=== PATIENT | male | born 1980 | race Caucasian/White ===

== ENCOUNTER 2019-05-10 11:40 | Emergency (ER) | payer MEDICAID ==
[~2019-05-10] VITALS: Ht 182.9 cm; Wt 84.0 kg
[2019-05-10 12:55] LABS: CULTURE INDICATED? YES; MICROSCOPIC AUTO
[2019-05-10 12:58] LABS: BASOPHILS # (AUTO) 0.03 x10^3/uL (0-0.1); BASOPHILS % (AUTO) 0 % (0-1); EOSINOPHILS % (AUTO) 1 % (1-7); LYMPHOCYTES # (AUTO) 1.92 x10^3/uL (1-3.4); LYMPHOCYTES % (AUTO) 23 % (22-44); MD NO; MEAN CORPUSCULAR HEMOGLOBIN 30.8 pg (27.5-34.5); MEAN CORPUSCULAR HGB CONC 33.5 g/dL (33.2-36.2); MEAN CORPUSCULAR VOLUME 91.8 fL (81-97); MONOCYTES # (AUTO) 0.66 x10^3/uL (0.2-0.8); MONOCYTES % (AUTO) 8 % (2-9); NEUTROPHILS # (AUTO) 5.77 x10^3/uL (1.8-6.8); NEUTROPHILS % (AUTO) 68 % (42-75); PLATELET COUNT 223 x10^3/uL (130-400); RED BLOOD COUNT 5.32 x10^6/uL (4.38-5.82); RED CELL DISTRIBUTION WIDTH 14.8 % (9.4-14.8)
[2019-05-10 13:10] LABS: ALANINE AMINOTRANSFERASE 22 U/L (12-78); ALBUMIN 3.6 g/dL (3.4-5.0); ANION GAP 4 mmol/L (5-15); CALCIUM 8.9 mg/dL (8.5-10.1); CHLORIDE 108 mmol/L (98-107)
[2019-05-10 13:12] LABS: ALKALINE PHOSPHATASE 60 U/L (45-117); BILIRUBIN,TOTAL 0.4 mg/dL (0.2-1.0); CREATININE 0.84 mg/dL (0.7-1.3); TOTAL PROTEIN 7.3 g/dL (6.4-8.2)
[2019-05-10 13:50] VITALS: BP 121/71
--- NOTE | 2019-05-10 13:54 | NUR ---
Patient/Caregiver given discharge instructions and they have confirmed that they understand the instructions. Patient ambulatory with steady gait.
== END 2019-05-10 13:55 ==
LOC: ED 12:46
DX: R10.84 Generalized abdominal pain (principal)
CPT/HCPCS: 36415; 80053; 81001; 83690; 85025; 87086; 99283

== ENCOUNTER 2020-05-11 15:00 | Inpatient (IN) | payer MEDICARE, MEDICAID ==
[~2020-05-11] VITALS: Ht 182.9 cm; Wt 72.8 kg
[2020-05-11] MEDS ORDERED: BISACODYL 10 MG SUPP PR PRN (15:30)
[2020-05-11] MEDS ORDERED: DOCUSATE 100 MG CAPSULE PO PRN (15:30)
[2020-05-11] MEDS ORDERED: ONDANSETRON ODT 4 MG PO PRN (15:30)
[2020-05-11] MEDS ORDERED: POLYETHYLENE GLYCOL 17 GM PACKET PO PRN (15:30)
[2020-05-11] MEDS: DIVALPROEX 250 MG TABLET.DR PO SCH ×2 (16:15→20:33)
[2020-05-11 17:00] VITALS: BP 110/55
[2020-05-11 19:30] VITALS: BP 100/66
[2020-05-11] MEDS: RISPERIDONE 1 MG TABLET PO SCH (20:33)
[2020-05-11 20:34] VITALS: BP 110/71
[2020-05-11] MEDS: PLEASE ENTER HEIGHT AND WEIGHT MC SCH (20:40)
[2020-05-12] MEDS: PLEASE ENTER HEIGHT AND WEIGHT MC SCH (01:01)
[2020-05-12 07:16] LABS: MICROSCOPIC NOT IND
[2020-05-12 07:19] LABS: AMPHETAMINE SCREEN, URINE Negative (Negative); BARBITURATE SCREEN, URINE Negative (Negative); BENZODIAZEPINE SCREEN, URINE Negative (Negative); CANNABINOID SCREEN, URINE Negative (Negative); COCAINE SCREEN, URINE Negative (Negative); METHADONE SCREEN, URINE Negative (Negative); OPIATE SCREEN, URINE Negative (Negative)
[2020-05-12 07:58] VITALS: BP 88/44
[2020-05-12 08:27] LABS: CHOL/HDL RATIO 5.7; FREE T4 (FREE THYROXINE) 1.13 ng/dL (0.76-1.46); LDL/HDL RATIO 3.6 (0.5-3.0)
[2020-05-12] MEDS: FLUOXETINE HCL 20 MG CAPSULE PO SCH (08:51)
[2020-05-12] MEDS: DIVALPROEX 250 MG TABLET.DR PO SCH ×3 (08:51→21:14)
[2020-05-12 19:37] VITALS: BP 101/64
[2020-05-12] MEDS: RISPERIDONE 1 MG TABLET PO SCH (21:13)
[2020-05-12] MEDS: ACETAMINOPHEN 325 MG TABLET PO PRN (21:13)
[2020-05-13 07:26] VITALS: BP 105/69
[2020-05-13] MEDS: ACETAMINOPHEN 325 MG TABLET PO PRN (08:27)
[2020-05-13] MEDS: FLUOXETINE HCL 20 MG CAPSULE PO SCH (08:27)
[2020-05-13] MEDS: DIVALPROEX 250 MG TABLET.DR PO SCH ×3 (08:27→20:07)
[2020-05-13] MEDS: HYDROXYZINE PAMOATE 50MG CAP PO PRN (08:28)
[2020-05-13 18:28] VITALS: BP 99/61
[2020-05-13] MEDS: RISPERIDONE 1 MG TABLET PO SCH (20:07)
[2020-05-14 07:50] VITALS: BP 94/58
[2020-05-14] MEDS: FLUOXETINE HCL 20 MG CAPSULE PO SCH (09:02)
[2020-05-14] MEDS: DIVALPROEX 250 MG TABLET.DR PO SCH ×3 (09:03→20:05)
[2020-05-14] MEDS: ACETAMINOPHEN 325 MG TABLET PO PRN (09:25)
[2020-05-14] MEDS: HYDROXYZINE PAMOATE 50MG CAP PO PRN (09:25)
[2020-05-14] MEDS: METHOCARBAMOL 500 MG TABLET PO SCH ×3 (15:12→20:05)
[2020-05-14 19:33] VITALS: BP 108/70
[2020-05-14] MEDS: RISPERIDONE 1 MG TABLET PO SCH (20:05)
[2020-05-15 07:20] VITALS: BP 100/62
[2020-05-15] MEDS: FLUOXETINE HCL 20 MG CAPSULE PO SCH (09:00)
[2020-05-15] MEDS: DIVALPROEX 250 MG TABLET.DR PO SCH ×3 (09:00→20:20)
[2020-05-15] MEDS: METHOCARBAMOL 500 MG TABLET PO SCH ×3 (09:01→20:20)
[2020-05-15 19:43] VITALS: BP 109/81
[2020-05-15] MEDS: RISPERIDONE 1 MG TABLET PO SCH (20:20)
[2020-05-15] MEDS: HYDROXYZINE PAMOATE 50MG CAP PO PRN (20:20)
[2020-05-16 07:55] VITALS: BP 92/54
[2020-05-16] MEDS: FLUOXETINE HCL 20 MG CAPSULE PO SCH (08:27)
[2020-05-16] MEDS: DIVALPROEX 250 MG TABLET.DR PO SCH ×3 (08:27→20:40)
[2020-05-16] MEDS: METHOCARBAMOL 500 MG TABLET PO SCH ×3 (08:27→20:40)
[2020-05-16] MEDS ORDERED: LIDODERM 5% PATCH TD SCH (15:30)
[2020-05-16 20:07] VITALS: BP 100/60
[2020-05-16] MEDS: RISPERIDONE 1 MG TABLET PO SCH (20:40)
[2020-05-16] MEDS: HYDROXYZINE PAMOATE 50MG CAP PO PRN (20:40)
[2020-05-17 07:13] VITALS: BP 110/70
[2020-05-17] MEDS: FLUOXETINE HCL 20 MG CAPSULE PO SCH (08:29)
[2020-05-17] MEDS: METHOCARBAMOL 500 MG TABLET PO SCH ×3 (08:29→20:17)
[2020-05-17] MEDS: DIVALPROEX 250 MG TABLET.DR PO SCH ×3 (08:30→20:17)
[2020-05-17] MEDS: LIDODERM 5% PATCH TD SCH (09:07)
[2020-05-17 19:30] VITALS: BP 105/60
[2020-05-17] MEDS: HYDROXYZINE PAMOATE 50MG CAP PO PRN (20:17)
[2020-05-17] MEDS: LIDODERM REMOVE PATCH NOTE XX SCH (20:17)
[2020-05-17] MEDS: RISPERIDONE 1 MG TABLET PO SCH (20:18)
[2020-05-18 07:50] VITALS: BP 100/59
[2020-05-18] MEDS: DIVALPROEX 250 MG TABLET.DR PO SCH ×3 (08:28→20:48)
[2020-05-18] MEDS: FLUOXETINE HCL 20 MG CAPSULE PO SCH (08:28)
[2020-05-18] MEDS: ACETAMINOPHEN 325 MG TABLET PO PRN (08:28)
[2020-05-18] MEDS: METHOCARBAMOL 500 MG TABLET PO SCH ×3 (08:28→20:46)
[2020-05-18] MEDS: LIDODERM 5% PATCH TD SCH (08:56)
[2020-05-18 19:20] VITALS: BP 111/72
[2020-05-18] MEDS: RISPERIDONE 1 MG TABLET PO SCH (20:47)
[2020-05-18] MEDS: HYDROXYZINE PAMOATE 50MG CAP PO PRN (20:47)
[2020-05-18] MEDS: LIDODERM REMOVE PATCH NOTE XX SCH (20:48)
[2020-05-19 07:47] VITALS: BP 104/55
[2020-05-19] MEDS: METHOCARBAMOL 500 MG TABLET PO SCH ×3 (08:43→21:30)
[2020-05-19] MEDS: FLUOXETINE HCL 20 MG CAPSULE PO SCH (08:43)
[2020-05-19] MEDS: DIVALPROEX 250 MG TABLET.DR PO SCH ×3 (08:43→21:30)
[2020-05-19] MEDS: LIDODERM 5% PATCH TD SCH (08:44)
[2020-05-19 19:38] VITALS: BP 93/60
[2020-05-19] MEDS: LIDODERM REMOVE PATCH NOTE XX SCH (21:00)
[2020-05-19] MEDS: RISPERIDONE 1 MG TABLET PO SCH (21:30)
[2020-05-20 07:12] VITALS: BP 100/63
[2020-05-20] MEDS: DIVALPROEX 250 MG TABLET.DR PO SCH ×3 (08:33→20:45)
[2020-05-20] MEDS: FLUOXETINE HCL 20 MG CAPSULE PO SCH (08:33)
[2020-05-20] MEDS: METHOCARBAMOL 500 MG TABLET PO SCH ×3 (08:33→20:45)
[2020-05-20] MEDS: LIDODERM 5% PATCH TD SCH (08:34)
[2020-05-20 19:33] VITALS: BP 101/65
[2020-05-20] MEDS: RISPERIDONE 1 MG TABLET PO SCH (20:45)
[2020-05-20] MEDS: LIDODERM REMOVE PATCH NOTE XX SCH (20:46)
[2020-05-21 07:59] VITALS: BP 101/64
[2020-05-21] MEDS: METHOCARBAMOL 500 MG TABLET PO SCH ×3 (08:59→20:33)
[2020-05-21] MEDS: FLUOXETINE HCL 20 MG CAPSULE PO SCH ×2 (08:59→09:00)
[2020-05-21] MEDS: DIVALPROEX 250 MG TABLET.DR PO SCH ×3 (08:59→20:33)
[2020-05-21] MEDS: LIDODERM 5% PATCH TD SCH (09:00)
[2020-05-21] MEDS ORDERED: ARIPIPRAZOLE 5 MG TABLET PO ONE (12:00)
[2020-05-21 19:22] VITALS: BP 110/70
[2020-05-21] MEDS: RISPERIDONE 1 MG TABLET PO SCH (20:32)
[2020-05-21] MEDS: LIDODERM REMOVE PATCH NOTE XX SCH (21:00)
[2020-05-22 07:35] VITALS: BP 111/69
[2020-05-22] MEDS: METHOCARBAMOL 500 MG TABLET PO SCH (08:38)
[2020-05-22] MEDS: DIVALPROEX 250 MG TABLET.DR PO SCH ×3 (08:38→20:02)
[2020-05-22] MEDS: ARIPIPRAZOLE 5 MG TABLET PO SCH (08:38)
[2020-05-22] MEDS: FLUOXETINE HCL 20 MG CAPSULE PO SCH (08:38)
[2020-05-22] MEDS: LIDODERM 5% PATCH TD SCH (08:38)
[2020-05-22] MEDS ORDERED: METHOCARBAMOL 500 MG TABLET PO PRN (16:00)
[2020-05-22 19:30] VITALS: BP 98/62
[2020-05-22] MEDS: RISPERIDONE 1 MG TABLET PO SCH (20:02)
[2020-05-22] MEDS: HYDROXYZINE PAMOATE 50MG CAP PO PRN (20:02)
[2020-05-22] MEDS: LIDODERM REMOVE PATCH NOTE XX SCH (20:59)
[2020-05-23 07:18] VITALS: BP 93/56
[2020-05-23] MEDS: DIVALPROEX 250 MG TABLET.DR PO SCH ×3 (10:08→20:10)
[2020-05-23] MEDS: FLUOXETINE HCL 20 MG CAPSULE PO SCH (10:08)
[2020-05-23] MEDS: ARIPIPRAZOLE 5 MG TABLET PO SCH (10:08)
[2020-05-23] MEDS: LIDODERM 5% PATCH TD SCH (10:10)
[2020-05-23 18:36] VITALS: BP 101/64
[2020-05-23] MEDS: RISPERIDONE 1 MG TABLET PO SCH (20:10)
[2020-05-23] MEDS: HYDROXYZINE PAMOATE 50MG CAP PO PRN (20:10)
[2020-05-23] MEDS: LIDODERM REMOVE PATCH NOTE XX SCH (21:00)
[2020-05-24 07:35] VITALS: BP 103/66
[2020-05-24] MEDS: FLUOXETINE HCL 20 MG CAPSULE PO SCH (08:47)
[2020-05-24] MEDS: DIVALPROEX 250 MG TABLET.DR PO SCH ×3 (08:47→21:11)
[2020-05-24] MEDS: ARIPIPRAZOLE 5 MG TABLET PO SCH (08:47)
[2020-05-24] MEDS: LIDODERM 5% PATCH TD SCH (10:18)
[2020-05-24 19:39] VITALS: BP 106/67
[2020-05-24] MEDS: LIDODERM REMOVE PATCH NOTE XX SCH (21:00)
[2020-05-24] MEDS: HYDROXYZINE PAMOATE 50MG CAP PO PRN (21:11)
[2020-05-24] MEDS: RISPERIDONE 1 MG TABLET PO SCH (21:12)
[2020-05-25 07:06] VITALS: BP 104/68
[2020-05-25] MEDS: DIVALPROEX 250 MG TABLET.DR PO SCH ×3 (08:42→20:27)
[2020-05-25] MEDS: ARIPIPRAZOLE 5 MG TABLET PO SCH (08:42)
[2020-05-25] MEDS: FLUOXETINE HCL 20 MG CAPSULE PO SCH (08:42)
[2020-05-25] MEDS: LIDODERM 5% PATCH TD SCH (08:47)
[2020-05-25] MEDS: HYDROXYZINE PAMOATE 50MG CAP PO PRN ×2 (08:48→20:27)
[2020-05-25 19:29] VITALS: BP 100/65
[2020-05-25] MEDS: ACETAMINOPHEN 325 MG TABLET PO PRN (20:27)
[2020-05-25] MEDS: RISPERIDONE 1 MG TABLET PO SCH (20:27)
[2020-05-25] MEDS: LIDODERM REMOVE PATCH NOTE XX SCH (21:30)
[2020-05-26 07:41] VITALS: BP 99/65
[2020-05-26] MEDS: DIVALPROEX 250 MG TABLET.DR PO SCH ×3 (08:45→20:04)
[2020-05-26] MEDS: ARIPIPRAZOLE 5 MG TABLET PO SCH (08:45)
[2020-05-26] MEDS: FLUOXETINE HCL 20 MG CAPSULE PO SCH (08:45)
[2020-05-26] MEDS: LIDODERM 5% PATCH TD SCH (08:46)
[2020-05-26 19:49] VITALS: BP 112/72
[2020-05-26] MEDS: RISPERIDONE 1 MG TABLET PO SCH (20:05)
[2020-05-26] MEDS: LIDODERM REMOVE PATCH NOTE XX SCH (20:11)
[2020-05-27 07:54] VITALS: BP 95/60
[2020-05-27] MEDS: ARIPIPRAZOLE 5 MG TABLET PO SCH (08:39)
[2020-05-27] MEDS: DIVALPROEX 250 MG TABLET.DR PO SCH ×3 (08:39→20:14)
[2020-05-27] MEDS: FLUOXETINE HCL 20 MG CAPSULE PO SCH (08:39)
[2020-05-27] MEDS: LIDODERM 5% PATCH TD SCH (08:48)
[2020-05-27] MEDS ORDERED: METH-639 PO (14:11)
[2020-05-27] MEDS ORDERED: ARIP5TAB13 PO (14:11)
[2020-05-27] MEDS ORDERED: DIVA-59 PO (14:11)
[2020-05-27] MEDS ORDERED: RISP1TAB90 PO (14:11)
[2020-05-27] MEDS ORDERED: FLUO20CA23 PO (14:11)
[2020-05-27 20:05] VITALS: BP 104/66
[2020-05-27] MEDS: RISPERIDONE 1 MG TABLET PO SCH (20:14)
[2020-05-27] MEDS: HYDROXYZINE PAMOATE 50MG CAP PO PRN (20:14)
[2020-05-27] MEDS: LIDODERM REMOVE PATCH NOTE XX SCH (21:21)
[2020-05-28 07:13] VITALS: BP 117/75
[2020-05-28] MEDS: FLUOXETINE HCL 20 MG CAPSULE PO SCH (07:55)
[2020-05-28] MEDS: DIVALPROEX 250 MG TABLET.DR PO SCH (07:55)
[2020-05-28] MEDS: ARIPIPRAZOLE 5 MG TABLET PO SCH (07:55)
[2020-05-28] MEDS: LIDODERM 5% PATCH TD SCH (07:56)
[2020-05-28] MEDS: ACETAMINOPHEN 325 MG TABLET PO PRN (09:02)
== END 2020-05-28 10:15 | disposition home or self-care (01) | DRG 885 ==
LOC: 3E 16:54
PROVIDERS: ADMIT Psychiatry & Neurology Psychosomatic Medicine; ATTEND Psychiatry & Neurology Psychosomatic Medicine
DX: F25.1 Schizoaffective disorder, depressive type (principal); R45.851 Suicidal ideations; R45.87 Impulsiveness; F17.200 Nicotine dependence, unspecified, uncomplicated; F31.9 Bipolar disorder, unspecified; Z79.899 Other long term (current) drug therapy; Z91.19 Patient's noncompliance with other medical treatment and regimen; Z59.0 Homelessness; Z79.891 Long term (current) use of opiate analgesic; Z79.01 Long term (current) use of anticoagulants
CPT/HCPCS: 36415; 71045; 80061; 80307; 81003; 84439; 84443; 93005